=== PATIENT | male | born 1985 | race African-American/Black ===

== ENCOUNTER 2017-12-05 12:21 | Emergency (ER) | payer SELFPAY, OTHER ==
[2017-12-05] MEDS: IBUPROFEN 600 MG TAB PO (14:33)
[2017-12-05] MEDS: HYDROCODONE/APAP (5/325) TAB PO (14:33)
== END 2017-12-05 15:15 | disposition home or self-care (01) ==
LOC: FTE 12:21
DX: R68.84 Jaw pain (principal)
CPT/HCPCS: 70110; 99283-25